=== PATIENT | male | born 1980 | race Caucasian/White ===

== ENCOUNTER → 2019-06-20 | Outpatient (CLI) | payer BC ==
--- NOTE | 2019-06-20 13:48 | US ---
EXAMINATION TYPE: US scrotum with doppler. Grayscale and color Doppler Duplex imaging performed of t he scrotum. DATE OF EXAM: 06/20/2019 COMPARISON: NONE CLINICAL HISTORY: N50.89 Other specified disorders of the male genit. Left testicular pain EXAM MEASUREMENTS: TESTICLES: Right Testicle: 5.3 x 2.6 x 3.2 cm Left Testicle: 5.0 x 2.9 x 3.5 cm EPIDIDYMIS HEAD: Right Epididymis: 1.1 cm Left Epididymis: 1.3 cm Doppler performed to assess for testicular vascularity; good bilateral color flow and waveforms are s een. There is no evidence of testicular torsion. Presence of hydroceles: Small amount of fluid on the left Presence of varicoceles: Yes, on the left Left testicle is hypervascular compared to the right. Hypervascular, inflamed appearing heterogenous epididymis IMPRESSION: Left epididymal orchitis. Small hydrocele on the left may be reactive. Small varicoceles are also seen on the left.
== END | disposition home or self-care (01) ==
LOC: RADUSWWP 13:02
PROVIDERS: ATTEND Family Medicine
DX: N45.2 Orchitis (principal); N43.3 Hydrocele, unspecified; I86.1 Scrotal varices
CPT/HCPCS: 76870; 93975